=== PATIENT | male | born 1950 | race Two or more races ===

== ENCOUNTER → 2016-09-14 | Outpatient (CLI) | payer MEDICARE, OTHER ==
--- NOTE | 2016-09-20 17:04 | ECHO ---
The echocardiogram report can be seen in this patient's EMR in the Reports section MTDD
== END ==
LOC: MW.US 10:20
PROVIDERS: ATTEND Internal Medicine
DX: R01.1 Cardiac murmur, unspecified (principal)
CPT/HCPCS: 93306

== ENCOUNTER → 2016-09-23 | Outpatient (CLI) | payer MEDICARE, OTHER ==
[2016-09-23 10:55] LABS: CHLORIDE,CL 111 mmol/L (98-110); SODIUM,NA 142 mmol/L (136-146)
[2016-09-23 11:16] LABS: HIV12 AG/AB 4TH GEN W/REFLEX 0.8 (<1.0)
== END ==
LOC: MW.CHIM 09:45
PROVIDERS: ATTEND Internal Medicine
DX: R74.0 Nonspecific elevation of levels of transaminase and lactic acid dehydrogenase [LDH] (principal); I10 Essential (primary) hypertension; I35.0 Nonrheumatic aortic (valve) stenosis
CPT/HCPCS: 36415; 80053; 86707; 86803; 87389; 99214

== ENCOUNTER → 2016-10-04 | Outpatient (CLI) | payer MEDICARE, OTHER | LOC: MW.CHIM 08:00 | PROVIDERS: ATTEND Internal Medicine | DX: I10 Essential (primary) hypertension (principal); I35.0 Nonrheumatic aortic (valve) stenosis; R74.0 Nonspecific elevation of levels of transaminase and lactic acid dehydrogenase [LDH] | CPT/HCPCS: 99214 ==

== ENCOUNTER 2017-09-08 10:07 | Day surgery (SDC) | payer MEDICARE, OTHER ==
[~2017-09-08 10:07] MED LIST: Lactated Ringers 1,000 ML IV SCH
--- NOTE | 2017-09-08 11:14 | PCM.PREANE ---
Preanesthetic Assessment - Anesthesia/Transfusion/Family Hx Anesthesia History: Prior Anesthesia Without Reaction Family History of Anesthesia Reaction: No Transfusion History: No Prior Transfusion(s) Intubation History: Unknown - Review of Systems General: No Symptoms Pulmonary: No Symptoms Cardiovascular: No Symptoms Gastrointestinal: No Symptoms, Other (h/o colon polyps '13) Neurological: No Symptoms Other: Reports: None - Physical Assessment O2 Sat by Pulse Oximetry: 95 Respiratory Rate: 16 Vital Signs: Last Vital Signs Temp 36.4 C 09/08/17 10:41 Pulse 59 L 09/08/17 10:41 Resp 16 09/08/17 10:41 BP 151/60 H 09/08/17 10:41 Pulse Ox 95 09/08/17 10:41 Height: 1.78 m Weight: 102.058 kg ASA Class: 2 Mental Status: Alert & Oriented x3 Airway Class: Mallampati = 2 Dentition: Reports: Normal Dentition Thyro-Mental Finger Breadths: 3 Mouth Opening Finger Breadths: 3 ROM/Head Extension: Full Lungs: Clear to Auscultation, Normal Respiratory Effort Cardiovascular: Regular Rate, Regular Rhythm - Allergies Allergies/Adverse Reactions: Allergies Allergy/AdvReac Type Severity Reaction Status Date / Time No Known Allergies Allergy Verified 09/07/17 09:24 - Blood Blood Available: No - Anesthesia Plan Pre-Op Medication Ordered: None - Acknowledgements Anesthesia Type Planned: MAC Pt an Appropriate Candidate for the Planned Anesthesia: Yes Alternatives and Risks of Anesthesia Discussed w Pt/Guardian: Yes Pt/Guardian Understands and Agrees with Anesthesia Plan: Yes PreAnesthesia Questionnaire Cardiovascular History: Reports: Heart Murmur (mild aortic stenosis, asymptomatic, loud systolic murmer), Hypertension Gastrointestinal History: Reports: Colon Polyp Musculoskeletal History: Reports: Fracture, Gout Other Musculoskeletal History: hx of fx right leg Endocrine/Metabolic History: Reports: Obesity/BMI 30+ Dermatologic History: Reports: Psoriasis - Past Surgical History GI Surgical History: Reports: Colonoscopy - SUBSTANCE USE Smoking Status *Q: Former Smoker Tobacco Use Within Last Twelve Months: No Recreational Drug Use History: No - HOME MEDS Home Medications: Home Meds Allopurinol [Zyloprim] 100 mg PO DAILY 09/06/17 [History] Enalapril Maleate 5 mg PO DAILY 09/06/17 [History] Indomethacin 25 mg PO ASDIRECTED PRN 09/06/17 [History] Zolpidem Tartrate 10 mg PO BEDTIME PRN 09/06/17 [History] amLODIPine Besylate [Amlodipine Besylate] 10 mg PO DAILY 09/06/17 [History] - CURRENT (IN HOUSE) MEDS Current Meds: Current Medications Lactated Ringer's (Ringers, Lactated) 1,000 mls @ 125 mls/hr IV ASDIRECTED [facility] Last Admin: 09/08/17 10:44 Dose: 125 mls/hr
[2017-09-08] MEDS ORDERED: Propofol 200 MG/20 ML SDV ONE ×3 (11:40→12:22)
--- NOTE | 2017-09-08 12:40 | PCM.OPNOTE ---
- General Post-Op/Procedure Note Date of Surgery/Procedure: 09/08/17 Operative Procedure(s): Colonoscopy Pre Op Diagnosis: Personal history of colon polyps Post-Op Diagnosis: No evidence of neoplasia Anesthesia Technique: MAC (ASA II) Primary Surgeon: Cristobal Flynn Mortgage Originator: Cristian Roberson Condition: Good Free Text/Narrative:: Dictation [id number] CPT CODE 22282
[2017-09-08] MEDS ORDERED: Lactated Ringers 1,000 ML IV SCH (12:45)
--- NOTE | 2017-09-08 13:11 | PCM48HPAN ---
Post Anesthesia Note - EVALUATION WITHIN 48HRS OF ANESTHETIC Vital Signs in Normal Range: Yes Patient Participated in Evaluation: Yes Respiratory Function Stable: Yes Airway Patent: Yes Cardiovascular Function Stable: Yes Hydration Status Stable: Yes Pain Control Satisfactory: Yes Nausea and Vomiting Control Satisfactory: Yes Mental Status Recovered: Yes Resp Rate: 11
[2017-09-08] MEDS ORDERED: Desflurane 240 ML Bottle ONE (14:34)
--- NOTE | 2017-09-08 21:28 | OR ---
SURGEON: Cristobal Flynn M.D. DATE OF PROCEDURE: 09/08/2017 OPERATION PERFORMED: Colonoscopy. SERVICE CENTER SUPERVISOR: Counter Attendant: Dr. Roberson, PGY-2. ANESTHESIA: MAC. ASA CLASSIFICATION: II. PREOPERATIVE DIAGNOSIS: Personal history of colon polyps. POSTOPERATIVE DIAGNOSIS: No evidence of neoplasia. DESCRIPTION OF PROCEDURE: The patient was taken to the endoscopy room and positioned on the endoscopy table in the left lateral decubitus position. Time-out was called for appropriate identification of the patient and procedure. Monitored anesthesia care was provided. The colonoscope was inserted into the rectum and advanced with minimal difficulty to the cecum where the colonoscope was retroflexed to visualize the ascending colon from below. The colonoscope was then straightened and slowly withdrawn. The cecum, ascending colon, hepatic flexure, transverse colon, splenic flexure, descending colon, sigmoid colon, and rectum were very well visualized. No tumors, polyps, diverticula, or angiodysplastic changes were noted anywhere throughout the lower gastrointestinal tract. Once the colonoscope was withdrawn to the rectum, it was retroflexed to visualize the anal orifice from above. Again, no tumors or polyps were seen. There were some minor chronic hemorrhoidal changes, but nothing acute. The colonoscope was then straightened, the rectum aspirated, and the colonoscope removed. The patient tolerated the procedure well and was taken to recovery room in stable condition. DUSTIN LEES /[id number]
== END 2017-09-08 13:20 | disposition home or self-care (01) ==
LOC: MW.SDS 10:07
PROVIDERS: ATTEND Surgery
DX: K64.9 Unspecified hemorrhoids (principal); I10 Essential (primary) hypertension; I35.0 Nonrheumatic aortic (valve) stenosis; M10.9 Gout, unspecified; E79.0 Hyperuricemia without signs of inflammatory arthritis and tophaceous disease; G47.00 Insomnia, unspecified; L40.9 Psoriasis, unspecified; E66.9 Obesity, unspecified; Z68.32 Body mass index [BMI] 32.0-32.9, adult; Z79.899 Other long term (current) drug therapy; Z98.890 Other specified postprocedural states; Z87.891 Personal history of nicotine dependence; Z86.010 Personal history of colon polyps; Z80.0 Family history of malignant neoplasm of digestive organs
CPT/HCPCS: 45378; J7120; J2704

== ENCOUNTER 2022-09-26 12:48 | Day surgery (SDC) | payer MEDICARE, OTHER ==
[~2022-09-26 12:48] MED LIST changes: +cefOXitin 2 GM in Sodium Chloride 0.9% 50 ML IV ONE
[2022-09-26] MEDS ORDERED: Lidocaine 2% 5 ML SDV ONE (14:30)
[2022-09-26] MEDS ORDERED: Propofol 200 MG/20 ML SDV ONE (14:31)
[2022-09-26] MEDS ORDERED: Glycopyrrolate 0.2 MG/ML SDV ONE (14:41)
[2022-09-26] MEDS ORDERED: Lactated Ringers 1,000 ML IV SCH (15:00)
== END 2022-09-26 15:30 | disposition home or self-care (01) ==
LOC: MW.SDS 12:48
PROVIDERS: ATTEND Surgery
DX: Z12.11 Encounter for screening for malignant neoplasm of colon (principal); M17.0 Bilateral primary osteoarthritis of knee; I10 Essential (primary) hypertension; E78.5 Hyperlipidemia, unspecified; M10.9 Gout, unspecified; G47.00 Insomnia, unspecified; Z86.010 Personal history of colon polyps; Z80.0 Family history of malignant neoplasm of digestive organs; Z79.899 Other long term (current) drug therapy; Z96.653 Presence of artificial knee joint, bilateral
CPT/HCPCS: G0105; J2704; J3490; J7120